=== PATIENT | male | born 1995 | race Caucasian/White ===

== ENCOUNTER 2017-05-10 12:09 | Emergency (ER) | payer OTHER ==
[~2017-05-10] VITALS: Ht 172.7 cm; Wt 66.7 kg
[~2017-05-10 12:09] MED LIST: BG MC; CELEXA20 MG PO; GLIPIZIDE5 MG PO; HUMALOG100 U/ML SC; LOP600 PO; METFORMIN HCL500 MG PO
[2017-05-10 13:12] VITALS: BP 137/89
== END 2017-05-10 13:12 | disposition home or self-care (01) ==
LOC: ED 12:09
DX: K02.9 Dental caries, unspecified (principal); E11.9 Type 2 diabetes mellitus without complications; I10 Essential (primary) hypertension; F17.210 Nicotine dependence, cigarettes, uncomplicated; Z71.6 Tobacco abuse counseling
CPT/HCPCS: 99406

== ENCOUNTER 2018-01-31 02:16 | Emergency (ER) | payer OTHER | END 2018-01-31 06:55 | disposition other institution (70) | LOC: ED 02:16 | DX: Z02.89 Encounter for other administrative examinations (principal) ==

== ENCOUNTER 2018-01-31 02:16 | Emergency (ER) | payer OTHER ==
[~2018-01-31] VITALS: Ht 172.7 cm; Wt 67.1 kg
[2018-01-31 02:29] VITALS: Ht 172.7 cm; Wt 67.1 kg
[2018-01-31 03:32] LABS: BASOPHIL % 0.2 % (0-2); PLATELET COUNT 329 x10^3mcL (130-400); RED CELL DISTRIBUTION WIDTH 12.4 % (11.5-14.5)
[2018-01-31 03:46] LABS: CALCIUM 8.4 mg/dL (8.5-10.1); CARBON DIOXIDE 27.3 mmol/L (21-32); CHLORIDE SERUM 105 mmol/L (98-107); CREATININE SERUM 0.9 mg/dL (0.7-1.3); GFR1 > 60 mL/min; GLUCOSE SERUM 417 mg/dL (74-106); POTASSIUM SERUM 4.6 mmol/L (3.5-5.1); SODIUM SERUM 145 mmol/L (136-145)
[2018-01-31 03:51] LABS: ALBUMIN 3.9 g/dL (3.4-5.0); ALKALINE PHOSPHATASE 76 U/L (46-116); ALT/SGPT 27 U/L (16-63); AST/SGOT 19 U/L (15-37); BILIRUBIN TOTAL 0.88 mg/dL (0.20-1.00); TOTAL PROTEIN, SERUM 6.9 g/dL (6.4-8.2)
[2018-01-31 06:55] VITALS: BP 121/76
[2018-01-31 07:05] LABS: microscopic required? NO
[2018-01-31 07:49] LABS: UA SPECIFIC GRAVITY 1.015 (1.005-1.035); urine erythrocyte NEGATIVE (NEGATIVE)
== END 2018-01-31 06:55 | disposition other institution (70) ==
LOC: ED 02:16
PROVIDERS: Emergency Medicine
DX: E11.65 Type 2 diabetes mellitus with hyperglycemia (principal); J06.9 Acute upper respiratory infection, unspecified; I10 Essential (primary) hypertension
CPT/HCPCS: 36600; 87804; J7030

== ENCOUNTER 2018-04-06 11:52 | Emergency (ER) | payer OTHER ==
[~2018-04-06] VITALS: Ht 172.7 cm; Wt 69.9 kg
[2018-04-06 11:56] VITALS: Ht 172.7 cm; Wt 69.9 kg
[2018-04-06 13:05] VITALS: BP 137/82
== END 2018-04-06 14:50 | disposition home or self-care (01) ==
LOC: ED 11:52
DX: S09.90XA Unspecified injury of head, initial encounter (principal); I10 Essential (primary) hypertension; E11.9 Type 2 diabetes mellitus without complications; X58.XXXA Exposure to other specified factors, initial encounter; Y93.39 Activity, other involving climbing, rappelling and jumping off; Y92.89 Other specified places as the place of occurrence of the external cause; Y99.8 Other external cause status